=== PATIENT | male | born 1950 | race Hispanic/Latino ===

== ENCOUNTER 2018-11-27 07:32 | Day surgery (SDC) | payer MEDICARE ==
[2018-11-19 11:35] VITALS: BMI 30.1
[2018-11-27 08:07] VITALS: RESP 16; TEMP 98
[2018-11-27] MEDS ORDERED: Propofol 10 mg/ml Inj (20 ML) ONE ×2 (08:24→09:18)
[2018-11-27] MEDS ORDERED: Sodium Chloride 0.9% 1,000 ML IV SCH (09:45)
[2018-11-27 09:48] VITALS: O2SAT 99
[2018-11-27 11:05] VITALS: BP 125/74
[2018-11-27 11:08] VITALS: PULSE 59
== END 2018-11-27 11:00 | disposition home or self-care (01) ==
LOC: ENDO 07:32
PROVIDERS: ATTEND Internal Medicine Gastroenterology
DX: K22.70 Barrett's esophagus without dysplasia (principal); K29.70 Gastritis, unspecified, without bleeding; K26.9 Duodenal ulcer, unspecified as acute or chronic, without hemorrhage or perforation
CPT/HCPCS: 43239; 88305; 88312; 88342; J2001; J2704; J7030; J7040